=== PATIENT | male | born 1955 | race Caucasian/White ===

== ENCOUNTER 2021-03-28 19:17 | Emergency (ER) | payer MEDICARE, OTHER ==
--- NOTE | 2021-03-28 19:59 | ED ---
General Adult HPI - General Chief complaint: GI Bleed Stated complaint: Spitting up blood Time Seen by Provider: 03/28/21 19:39 Source: patient Mode of arrival: ambulatory Limitations: no limitations - History of Present Illness Initial comments: Dictation was produced using [employer] dictation software. please excuse any grammatical, word or spelling errors. Chief Complaint: 65-year-old male presents to the emergency Department for he matemesis and right-sided flank pain History of Present Illness: 65-year-old male presents emergency department for 1-2 days of hematemesis and right-sided flank pain. Patient has any medical problems. Presenting and medications unreadable bases he is an occasional smoker. States that he has had some episodes of vomiting. He states it is bright red. No black stools. He also complains of some mild right-sided flank pain. He states is not pleuritic. Patient has any shortness of breath. No coughing. No fevers and patient does not have a history of alcoholism. Never been told that he has had esophageal varices. Flank pain is not radiating. The ROS documented in this emergency department record has been reviewed and confirmed by me. Those systems with pertinent positive or negative responses have been documented in the HPI. All other systems are other negative and/or noncontributory. PHYSICAL EXAM: General Impression: Alert and oriented x3, not in acute distress HEENT: Normocephalic atraumatic, extra-ocular movements intact, pupils equal and reactive to light bilaterally, mucous membranes moist. Cardiovascular: Mildly tachycardic Chest: Able to complete full sentences, no retractions, no tachypnea Abdomen: abdomen soft, non-tender, non-distended, no organomegaly Musculoskeletal: Pulses present and equal in all extremities, no peripheral edema Motor: no focal deficits noted Neurological: CN II-XII grossly intact, no focal motor or sensory deficits noted Skin: Intact with no visualized rashes Psych: Normal affect and mood ED course: 65-year-old male presents with chief complaint of hematemesis and right-sided flank pain. Vital signs upon arrival shows heart rate of 115, rest of vital signs within acceptable limits. EKG interpretation: Ventricular rate vital 7, sinus tachycardia,. 194, care is 86, QTC 448. No CA prolongation, no QTC prolongation, no ST or T-wave changes noted. Overall, this EKG is unremarkable Laboratory evaluation obtained. CBC [place]. Coag panel metabolic panel is negative. No markers are normal. Urinalysis shows greater than 182 red blood cells and 80 white blood cells. Acute abdominal series shows no acute processes. CT of the abdomen and pelvis without contrast was obtained for concern of kidney stone and hematuria. There is minimal bladder wall thickening which may be secondary to nonspecific cystitis. No evidence is of renal stone or obstruction. There is concern that patient suffering from urinary tract infection. Is given a dose of ceftriaxone. Patient given a prescription for ciprofloxacin. Patient provided with referral to urology. - Related Data Previous Rx's Medication Instructions Recorded Ciprofloxacin HCl [Cipro] 500 mg PO Q12H 10 Days #20 tab 03/28/21 Allergies Allergy/AdvReac Type Severity Reaction Status Date / Time No Known Allergies Allergy Verified 03/28/21 21:00 Review of Systems ROS Statement: Those systems with pertinent positive or pertinent negative responses have been documented in the HPI. ROS Other: All systems not noted in ROS Statement are negative. Past Medical History Past Medical History: No Reported History History of Any Multi-Drug Resistant Organisms: None Reported Past Surgical History: No Surgical Hx Reported Past Psychological History: No Psychological Hx Reported Smoking Status: Current every day smoker Past Alcohol Use History: None Reported Past Drug Use History: None Reported General Exam Limitations: no limitations Course Vital Signs 03/28/21 03/28/21 03/28/21 19:29 19:36 21:14 Temperature 98.3 F 98.2 F Pulse Rate 115 H 85 Respiratory 16 16 18 Rate Blood Pressure 150/89 163/98 O2 Sat by Pulse 96 96 Oximetry Medical Decision Making - Lab Data Result diagrams: 03/28/21 19:50 03/28/21 19:50 Lab Results 03/28/21 03/28/21 03/28/21 Range/Units 19:48 19:50 19:50 WBC 6.2 (3.8-10.6) k/uL RBC 4.62 (4.30-5.90) m/uL Hgb 14.9 (13.0-17.5) gm/dL Hct 42.0 (39.0-53.0) % MCV 90.8 (80.0-100.0) fL MCH 32.3 (25.0-35.0) pg MCHC 35.6 (31.0-37.0) g/dL RDW 13.1 (11.5-15.5) % Plt Count 262 (150-450) k/uL MPV 7.3 Neutrophils % 76 % Lymphocytes % 13 % Monocytes % 6 % Eosinophils % 3 % Basophils % 1 % Neutrophils # 4.7 (1.3-7.7) k/uL Lymphocytes # 0.8 L (1.0-4.8) k/uL Monocytes # 0.3 (0-1.0) k/uL Eosinophils # 0.2 (0-0.7) k/uL Basophils # 0.0 (0-0.2) k/uL PT (9.0-12.0) sec INR (<1.2) APTT (22.0-30.0) sec Sodium (137-145) mmol/L Potassium (3.5-5.1) mmol/L Chloride (98-107) mmol/L Carbon Dioxide (22-30) mmol/L Anion Gap mmol/L BUN (9-20) mg/dL Creatinine (0.66-1.25) mg/dL Est GFR (CKD-EPI)AfAm (>60 ml/min/1.73 sqM) Est GFR (CKD-EPI)NonAf (>60 ml/min/1.73 sqM) Glucose (74-99) mg/dL Calcium (8.4-10.2) mg/dL Magnesium (1.6-2.3) mg/dL Total Bilirubin (0.2-1.3) mg/dL AST (17-59) U/L ALT (4-49) U/L Alkaline Phosphatase (38-126) U/L Total Protein (6.3-8.2) g/dL Albumin (3.5-5.0) g/dL Urine Color Urine Appearance (Clear) Urine pH (5.0-8.0) Ur Specific [place] (1.001-1.035) Urine Protein (Negative) Urine Glucose (UA) (Negative) Urine Ketones (Negative) Urine Blood (Negative) Urine Nitrite (Negative) Urine Bilirubin (Negative) Urine Urobilinogen (<2.0) mg/dL Ur Leukocyte Esterase (Negative) Urine RBC (0-5) /hpf Urine WBC (0-5) /hpf Ur Squamous Epith Cells (0-4) /hpf Urine Mucus (None) /hpf Blood Type A Negative Blood Type Confirm A Negative Blood Type Recheck No Previous Record Bld Type Recheck Status CABO Indicated Antibody Screen NEGATIVE Spec Expiration Date 03/31/2021 - 234903/28/21 03/28/21 03/28/21 Range/Units 19:50 19:50 20:12 WBC (3.8-10.6) k/uL RBC (4.30-5.90) m/uL Hgb (13.0-17.5) gm/dL Hct (39.0-53.0) % MCV (80.0-100.0) fL MCH (25.0-35.0) pg MCHC (31.0-37.0) g/dL RDW (11.5-15.5) % Plt Count (150-450) k/uL MPV Neutrophils % % Lymphocytes % % Monocytes % % Eosinophils % % Basophils % % Neutrophils # (1.3-7.7) k/uL Lymphocytes # (1.0-4.8) k/uL Monocytes # (0-1.0) k/uL Eosinophils # (0-0.7) k/uL Basophils # (0-0.2) k/uL PT 10.1 (9.0-12.0) sec INR 0.9 (<1.2) APTT 22.6 (22.0-30.0) sec Sodium 133 L (137-145) mmol/L Potassium 4.4 (3.5-5.1) mmol/L Chloride 99 (98-107) mmol/L Carbon Dioxide 26 (22-30) mmol/L Anion Gap 8 mmol/L BUN 16 (9-20) mg/dL Creatinine 0.84 (0.66-1.25) mg/dL Est GFR (CKD-EPI)AfAm >90 (>60 ml/min/1.73 sqM) Est GFR (CKD-EPI)NonAf >90 (>60 ml/min/1.73 sqM) Glucose 106 H (74-99) mg/dL Calcium 8.9 (8.4-10.2) mg/dL Magnesium 2.1 (1.6-2.3) mg/dL Total Bilirubin 0.5 (0.2-1.3) mg/dL AST 23 (17-59) U/L ALT 20 (4-49) U/L Alkaline Phosphatase 93 (38-126) U/L Total Protein 7.0 (6.3-8.2) g/dL Albumin 4.4 (3.5-5.0) g/dL Urine Color Yellow Urine Appearance Cloudy (Clear) Urine pH 6.0 (5.0-8.0) Ur Specific [place] 1.022 (1.001-1.035) Urine Protein 1+ H (Negative) Urine Glucose (UA) Negative (Negative) Urine Ketones Negative (Negative) Urine Blood Large H (Negative) Urine Nitrite Negative (Negative) Urine Bilirubin Negative (Negative) Urine Urobilinogen <2.0 (<2.0) mg/dL Ur Leukocyte Esterase Large H (Negative) Urine RBC >182 H (0-5) /hpf Urine WBC 80 H (0-5) /hpf Ur Squamous Epith Cells 4 (0-4) /hpf Urine Mucus Occasional H (None) /hpf Blood Type Blood Type Confirm Blood Type Recheck Bld Type Recheck Status Antibody Screen Spec Expiration Date Disposition Clinical Impression: Hematuria, Flank pain Disposition: HOME SELF-CARE Condition: Fair Instructions (If sedation given, give patient instructions): Hematuria (ED) Prescriptions: Ciprofloxacin HCl [Cipro] 500 mg PO Q12H 10 Days #20 tab Is patient prescribed a controlled substance at d/c from ED?: No Referrals: Francisco Harper MD [STAFF PHYSICIAN] - 1-2 days
[2021-03-28 20:07] LABS: Basophils % (A) 1 %; Eosinophils # (A) 0.2 k/uL (0-0.7); Eosinophils % (A) 3 %; HGB 14.9 gm/dL (13.0-17.5); Lymphocytes # (A) 0.8 k/uL (1.0-4.8); Lymphocytes % (A) 13 %; MCH 32.3 pg (25.0-35.0); MCHC 35.6 g/dL (31.0-37.0); MCV 90.8 fL (80.0-100.0); Mean Platelet Volume 7.3; Monocytes # (A) 0.3 k/uL (0-1.0); Monocytes % (A) 6 %; Neutrophils # (A) 4.7 k/uL (1.3-7.7); Neutrophils % (A) 76 %; Platelet Count 262 k/uL (150-450); RBC 4.62 m/uL (4.30-5.90); RDW 13.1 % (11.5-15.5); WBC 6.2 k/uL (3.8-10.6)
[2021-03-28 20:15] LABS: ALT 20 U/L (4-49); AST 23 U/L (17-59); African American GFR (CKD) >90 (>60 ml/min/1.73 sqM); Albumin 4.4 g/dL (3.5-5.0); Alkaline Phosphatase 93 U/L (38-126); Anion Gap 8 mmol/L; Blood Urea Nitrogen 16 mg/dL (9-20); Calcium 8.9 mg/dL (8.4-10.2); Carbon Dioxide 26 mmol/L (22-30); Chloride 99 mmol/L (98-107); Glucose 106 mg/dL (74-99); Magnesium 2.1 mg/dL (1.6-2.3); Non-African American GFR(CKD) >90 (>60 ml/min/1.73 sqM); Potassium 4.4 mmol/L (3.5-5.1); Sodium 133 mmol/L (137-145); Total Bilirubin 0.5 mg/dL (0.2-1.3)
[2021-03-28 20:26] LABS: INR 0.9 (<1.2); Partial Thromboplastin Time 22.6 sec (22.0-30.0); Prothrombin Time 10.1 sec (9.0-12.0)
--- NOTE | 2021-03-28 20:32 | XR ---
EXAMINATION TYPE: XR abdomen acute w cxr DATE OF EXAM: 03/28/2021 COMPARISON: NONE HISTORY: Abdominal pain TECHNIQUE: 4 views FINDINGS: There is no heart failure nor confluent pneumonic infiltrate. Costophrenic angles are clear . There are chest leads. Bowel gas pattern is normal. There is no sign of intestinal obstruction or p neumoperitoneum. Fecal pattern is normal. There are no pathologic calcifications over the kidneys. Th ere is some spurring in the lumbar spine. IMPRESSION: No active cardiopulmonary disease. Nonacute abdomen.
[2021-03-28 21:14] VITALS: RESP 18
[2021-03-28 21:26] LABS: Appearance,Urine Cloudy (Clear); Bilirubin,Urine Negative (Negative); Blood,Urine Large (Negative); Color,Urine Yellow; Glucose,Urine (UA) Negative (Negative); Ketones,Urine Negative (Negative); Leukocyte Esterase,Urine Large (Negative); Mucus,Urine Occasional /hpf; Nitrite,Urine Negative (Negative); Protein,Urine 1+ (Negative); RBC,Urine >182 /hpf (0-5); Specific Gravity,Urine 1.022 (1.001-1.035); Squamous Epithelial Cell,Urine 4 /hpf (0-4); Urobilinogen,Urine <2.0 mg/dL (<2.0); WBC,Urine 80 /hpf (0-5)
[2021-03-28] MEDS ORDERED: KETOROLAC 15 MG/ML 1 ML VIAL IVP STA (21:37)
[2021-03-28] MEDS ORDERED: ONDANSETRON 4 MG/2 ML VIAL IVP STA (21:43)
--- NOTE | 2021-03-28 22:43 | CT ---
EXAMINATION TYPE: CT abdomen pelvis wo con DATE OF EXAM: 03/28/2021 COMPARISON: 05/30/2013 HISTORY: Spitting up blood, possiible renal stone. CT DLP: 580.7 mGycm Automated exposure control for dose reduction was used. Images obtained from the diaphragm to the floor the pelvis without contrast. There is some interstitial infiltrates in the right lung base. There is no pleural effusion. Heart si ze is normal. There is no pericardial effusion. Liver spleen stomach pancreas gallbladder appear inta ct. The bile ducts are not dilated. There is no adrenal mass. The kidneys have normal size. There is no hydronephrosis. Ureters are not d ilated. There is no retroperitoneal adenopathy. Abdominal aorta is atheromatous. The bladder distends smoothly. There is some minimal wall thickening of the anterior urinary bladder. There is no inguina l hernia. There is no free fluid in the pelvis. There is no mesenteric edema. There is no ascites or free air. There is no bowel obstruction. Appendi x is medial and appears normal. There are some spondylotic changes in the lumbar spine. There is no c ompression fracture. There is some spinal stenosis at L2-3 due to posterior calcified disc herniation . There is posterior concentric disc herniation at L3-4. There is lateral recess stenosis at L3-4 L4- 5 due to facet arthropathy. The bony pelvis is intact. The hip joints are intact. IMPRESSION: Minimal bladder wall thickening could relate be due to some nonspecific cystitis. Normal appendix. No evidence of renal stone or obstruction.
[2021-03-28] MEDS ORDERED: cefTRIAXone IN SWFI 1,000 MG/10 ML SYRINGE IVP ONE (22:44)
[2021-03-28 23:00] VITALS: BP 164/92; PULSE 86; TEMP 98.4
== END 2021-03-28 23:00 | disposition home or self-care (01) ==
LOC: EC 19:17
DX: R10.9 Unspecified abdominal pain (principal); R31.9 Hematuria, unspecified; F17.200 Nicotine dependence, unspecified, uncomplicated
CPT/HCPCS: 36415; 93005; 86900; 86901; 80053; 83735; 85025; 85610; 85730; 86850; 81001; 87086; 74022; 74176; 96374; 96375 ×2; 99284; J2405; J0696; J1885

== ENCOUNTER 2021-03-30 16:28 | Observation (INO) | payer MEDICARE, OTHER ==
[2021-03-30] MEDS ORDERED: SODIUM CHLORIDE 0.9% 1,000 ML IV STA (17:15)
[2021-03-30] MEDS ORDERED: MORPHINE SULFATE 4 MG/ML SYRINGE IVP STA (17:16)
[2021-03-30 17:41] LABS: Basophils % (A) 1 %; Eosinophils # (A) 0.2 k/uL (0-0.7); Eosinophils % (A) 4 %; HCT 42.4 % (39.0-53.0); HGB 14.7 gm/dL (13.0-17.5); Lymphocytes # (A) 0.8 k/uL (1.0-4.8); Lymphocytes % (A) 17 %; MCH 32.4 pg (25.0-35.0); MCHC 34.7 g/dL (31.0-37.0); MCV 93.3 fL (80.0-100.0); Mean Platelet Volume 6.8; Monocytes # (A) 0.3 k/uL (0-1.0); Monocytes % (A) 7 %; Neutrophils # (A) 3.3 k/uL (1.3-7.7); Neutrophils % (A) 70 %; Platelet Count 235 k/uL (150-450); RBC 4.55 m/uL (4.30-5.90); WBC 4.8 k/uL (3.8-10.6)
[2021-03-30 17:54] LABS: ALT 20 U/L (4-49); AST 23 U/L (17-59); African American GFR (CKD) >90 (>60 ml/min/1.73 sqM); Albumin 4.3 g/dL (3.5-5.0); Alkaline Phosphatase 85 U/L (38-126); Amylase 77 U/L (30-110); Anion Gap 7 mmol/L; Blood Urea Nitrogen 12 mg/dL (9-20); Calcium 8.7 mg/dL (8.4-10.2); Carbon Dioxide 28 mmol/L (22-30); Chloride 100 mmol/L (98-107); Glucose 106 mg/dL (74-99); Lipase 144 U/L (23-300); Non-African American GFR(CKD) >90 (>60 ml/min/1.73 sqM); Potassium 4.5 mmol/L (3.5-5.1); Sodium 135 mmol/L (137-145); Total Bilirubin 0.4 mg/dL (0.2-1.3); Total Protein 6.9 g/dL (6.3-8.2)
--- NOTE | 2021-03-30 18:06 | XR ---
EXAMINATION TYPE: XR KUB DATE OF EXAM: 03/30/2021 COMPARISON: NONE HISTORY: Flank pain TECHNIQUE: 2 views FINDINGS: Bowel gas pattern is normal. There is no sign of intestinal obstruction or pneumoperitoneum . There is retained fecal material in the right colon. There is no evidence of a mass. Lung bases are clear. There are no pathologic calcifications over the kidneys. IMPRESSION: Nonacute abdomen. Probably some constipation with retained fecal material in the right si de.
--- NOTE | 2021-03-30 18:16 | ED ---
Abdominal Pain HPI - General Chief Complaint: Abdominal Pain Stated Complaint: Rt Side Pain Time Seen by Provider: 03/30/21 16:55 Source: patient, RN notes reviewed Mode of arrival: ambulatory Limitations: no limitations - History of Present Illness Initial Comments: Patient is a 65-year-old male that presents to the emergency department complaining of right side pain. He denied any injury or trauma. He was otherwise a well-appearing 65-year-old male in no apparent distress or pain. He notes that the pain was approximately a 9 out of 10 after giving seconds of follow-up. He denied any hematochezia melena hematemesis. He denied any abdominal tenderness or discomfort. He denied any chest pain shortness of breath headache nausea vomiting diarrhea constipation fever fatigue chills. - Related Data Home Medications Medication Instructions Recorded Confirmed No Known Home Medications 03/30/21 03/30/21 Allergies Allergy/AdvReac Type Severity Reaction Status Date / Time aspirin Allergy Abdominal Verified 03/30/21 17:43 Pain Review of Systems ROS Statement: Those systems with pertinent positive or pertinent negative responses have been documented in the HPI. ROS Other: All systems not noted in ROS Statement are negative. Past Medical History Past Medical History: No Reported History History of Any Multi-Drug Resistant Organisms: None Reported Past Surgical History: No Surgical Hx Reported Past Psychological History: No Psychological Hx Reported Smoking Status: Current every day smoker Past Alcohol Use History: None Reported Past Drug Use History: None Reported General Exam Limitations: no limitations General appearance: alert, in no apparent distress Head exam: Present: atraumatic, normocephalic, normal inspection Eye exam: Present: normal appearance, PERRL, EOMI. Absent: scleral icterus, conjunctival injection, periorbital swelling Neck exam: Present: normal inspection Respiratory exam: Present: normal lung sounds bilaterally. Absent: respiratory distress, wheezes, rales, rhonchi, stridor Cardiovascular Exam: Present: regular rate, normal rhythm, normal heart sounds. Absent: systolic murmur, diastolic murmur, rubs, gallop, clicks GI/Abdominal exam: Present: soft, normal bowel sounds. Absent: distended, tenderness, guarding, rebound, rigid Extremities exam: Present: normal inspection, full ROM, normal capillary refill. Absent: tenderness, pedal edema, joint swelling, calf tenderness Neurological exam: Present: alert, oriented X3 Psychiatric exam: Present: normal affect, normal mood Skin exam: Present: warm, dry, intact, normal color. Absent: rash Course Vital Signs 03/30/21 03/30/21 03/30/21 16:48 18:08 18:21 Temperature 98.0 F Pulse Rate 96 40 L 75 Respiratory 20 16 Rate Blood Pressure 165/92 174/94 O2 Sat by Pulse 97 99 Oximetry 03/30/21 19:10 Temperature Pulse Rate 78 Respiratory 40 H Rate Blood Pressure 156/91 O2 Sat by Pulse 100 Oximetry Medical Decision Making - Medical Decision Making 65-year-old male complaining of right flank/abdominal pain times one. Labs, KUB, 1 L normal saline, 4 monos morphine ordered. Labs unremarkable. KUB negative for any acute process. Shows probable constipation with fecal matter retention in the right side. Case discussed with Dr. Bailey, patient will be admitted for observation due to constipation with right side pain and diaphoresis. [facility] the admit for Dr. Britton. - Lab Data Result diagrams: 03/30/21 17:33 03/30/21 17:33 Lab Results 03/30/21 03/30/21 03/30/21 Range/Units 17:33 17:33 18:12 WBC 4.8 (3.8-10.6) k/uL RBC 4.55 (4.30-5.90) m/uL Hgb 14.7 (13.0-17.5) gm/dL Hct 42.4 (39.0-53.0) % MCV 93.3 (80.0-100.0) fL MCH 32.4 (25.0-35.0) pg MCHC 34.7 (31.0-37.0) g/dL RDW 14.0 (11.5-15.5) % Plt Count 235 (150-450) k/uL MPV 6.8 Neutrophils % 70 % Lymphocytes % 17 % Monocytes % 7 % Eosinophils % 4 % Basophils % 1 % Neutrophils # 3.3 (1.3-7.7) k/uL Lymphocytes # 0.8 L (1.0-4.8) k/uL Monocytes # 0.3 (0-1.0) k/uL Eosinophils # 0.2 (0-0.7) k/uL Basophils # 0.0 (0-0.2) k/uL PT (9.0-12.0) sec INR (<1.2) APTT (22.0-30.0) sec Sodium 135 L (137-145) mmol/L Potassium 4.5 (3.5-5.1) mmol/L Chloride 100 (98-107) mmol/L Carbon Dioxide 28 (22-30) mmol/L Anion Gap 7 mmol/L BUN 12 (9-20) mg/dL Creatinine 0.83 (0.66-1.25) mg/dL Est GFR (CKD-EPI)AfAm >90 (>60 ml/min/1.73 sqM) Est GFR (CKD-EPI)NonAf >90 (>60 ml/min/1.73 sqM) Glucose 106 H (74-99) mg/dL Calcium 8.7 (8.4-10.2) mg/dL Total Bilirubin 0.4 (0.2-1.3) mg/dL AST 23 (17-59) U/L ALT 20 (4-49) U/L Alkaline Phosphatase 85 (38-126) U/L Troponin I (0.000-0.034) ng/mL Total Protein 6.9 (6.3-8.2) g/dL Albumin 4.3 (3.5-5.0) g/dL Amylase 77 (30-110) U/L Lipase 144 (23-300) U/L Urine Color Yellow Urine Appearance Clear (Clear) Urine pH 6.5 (5.0-8.0) Ur Specific [place] 1.012 (1.001-1.035) Urine Protein Trace H (Negative) Urine Glucose (UA) Negative (Negative) Urine Ketones Negative (Negative) Urine Blood Moderate H (Negative) Urine Nitrite Negative (Negative) Urine Bilirubin Negative (Negative) Urine Urobilinogen <2.0 (<2.0) mg/dL Ur Leukocyte Esterase Moderate H (Negative) Urine RBC 28 H (0-5) /hpf Urine WBC 67 H (0-5) /hpf Ur Squamous Epith Cells 1 (0-4) /hpf Hyaline Casts 1 (0-2) /lpf Urine Mucus Occasional H (None) /hpf Urine Yeast (Budding) Occasional H (None) /hpf 03/30/21 03/30/21 Range/Units 18:18 18:18 WBC (3.8-10.6) k/uL RBC (4.30-5.90) m/uL Hgb (13.0-17.5) gm/dL Hct (39.0-53.0) % MCV (80.0-100.0) fL MCH (25.0-35.0) pg MCHC (31.0-37.0) g/dL RDW (11.5-15.5) % Plt Count (150-450) k/uL MPV Neutrophils % % Lymphocytes % % Monocytes % % Eosinophils % % Basophils % % Neutrophils # (1.3-7.7) k/uL Lymphocytes # (1.0-4.8) k/uL Monocytes # (0-1.0) k/uL Eosinophils # (0-0.7) k/uL Basophils # (0-0.2) k/uL PT 10.0 (9.0-12.0) sec INR 0.9 (<1.2) APTT 23.4 (22.0-30.0) sec Sodium (137-145) mmol/L Potassium (3.5-5.1) mmol/L Chloride (98-107) mmol/L Carbon Dioxide (22-30) mmol/L Anion Gap mmol/L BUN (9-20) mg/dL Creatinine (0.66-1.25) mg/dL Est GFR (CKD-EPI)AfAm (>60 ml/min/1.73 sqM) Est GFR (CKD-EPI)NonAf (>60 ml/min/1.73 sqM) Glucose (74-99) mg/dL Calcium (8.4-10.2) mg/dL Total Bilirubin (0.2-1.3) mg/dL AST (17-59) U/L ALT (4-49) U/L Alkaline Phosphatase (38-126) U/L Troponin I <0.012 (0.000-0.034) ng/mL Total Protein (6.3-8.2) g/dL Albumin (3.5-5.0) g/dL Amylase (30-110) U/L Lipase (23-300) U/L Urine Color Urine Appearance (Clear) Urine pH (5.0-8.0) Ur Specific [place] (1.001-1.035) Urine Protein (Negative) Urine Glucose (UA) (Negative) Urine Ketones (Negative) Urine Blood (Negative) Urine Nitrite (Negative) Urine Bilirubin (Negative) Urine Urobilinogen (<2.0) mg/dL Ur Leukocyte Esterase (Negative) Urine RBC (0-5) /hpf Urine WBC (0-5) /hpf Ur Squamous Epith Cells (0-4) /hpf Hyaline Casts (0-2) /lpf Urine Mucus (None) /hpf Urine Yeast (Budding) (None) /hpf - EKG Data -: EKG Interpreted by Me EKG Comments: Ventricular rate 78 bpm, UT interval 214 ms, QRS duration 92 ms, QTC 449 ms, PRT axes 53/-22/26. Sinus rhythm with first-degree AV block with premature atrial complex and a pattern of bigeminy. Possible left atrial enlargement, borderline ECG. - Radiology Data Radiology results: report reviewed, image reviewed KUB: Nonacute abdomen. Probably some constipation with retained fecal material the right side. Disposition Clinical Impression: Abdominal pain, Constipation Disposition: ADMITTED IP TO THIS [facility] Condition: Stable Is patient prescribed a controlled substance at d/c from ED?: No Referrals: None,Stated [Primary Care Provider] - 1-2 days Time of Disposition: 19:21
[2021-03-30 18:19] LABS: Appearance,Urine Clear (Clear); Bilirubin,Urine Negative (Negative); Blood,Urine Moderate (Negative); Budding Yeast,Urine Occasional /hpf; Color,Urine Yellow; Glucose,Urine (UA) Negative (Negative); Hyaline Casts,Urine 1 /lpf (0-2); Ketones,Urine Negative (Negative); Leukocyte Esterase,Urine Moderate (Negative); Mucus,Urine Occasional /hpf; Nitrite,Urine Negative (Negative); PH, Urine 6.5 (5.0-8.0); Protein,Urine Trace (Negative); RBC,Urine 28 /hpf (0-5); Specific Gravity,Urine 1.012 (1.001-1.035); Squamous Epithelial Cell,Urine 1 /hpf (0-4); Urobilinogen,Urine <2.0 mg/dL (<2.0); WBC,Urine 67 /hpf (0-5)
[2021-03-30 18:57] LABS: INR 0.9 (<1.2); Partial Thromboplastin Time 23.4 sec (22.0-30.0)
[2021-03-30] MEDS: SODIUM CHLORIDE 0.9% 1,000 ML IV SCH (19:00)
[2021-03-30] MEDS ORDERED: polyethylene glycoL 3350 17 GM POWD.PACK PO STA (19:10)
[2021-03-30] MEDS ORDERED: NALOXONE 0.4 MG/ML 1 ML VIAL IV PRN (19:21)
[2021-03-31] MEDS ORDERED: ONDANSETRON 4 MG/2 ML VIAL IVP PRN (00:34)
[2021-03-31] MEDS: MORPHINE SULFATE 4 MG/ML SYRINGE IVP PRN ×2 (01:30→22:56)
[2021-03-31] MEDS: SODIUM CHLORIDE 0.9% 1,000 ML IV SCH ×3 (04:14→23:00)
[2021-04-01] MEDS: SODIUM CHLORIDE 0.9% 1,000 ML IV SCH (03:05)
[2021-04-01] MEDS ORDERED: FUROSEMIDE 40 MG TAB PO STA (07:54)
[2021-04-01] MEDS ORDERED: amLODIPine 5 MG TAB PO SCH (09:00)
[2021-04-01] MEDS ORDERED: KETOROLAC 15 MG/ML 1 ML VIAL IVP PRN (10:03)
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
--- NOTE | 2021-04-01 11:24 | P.DS ---
Providers Date of admission: 03/30/21 18:58 Attending physician: Tri Britton Primary care physician: Stated None Hospital Course: 65-year-old male came in with complaints of crampy pain in the right flank area radiating anteriorly towards the right side towards the groin. Patient had history of kidney stones in the past. Patient had previous CT which showed cystitis and patient urine is abnormal. Patient doesn't have any fever chills patient denied any nausea vomiting. Patient still has pain. When patient came in patient pain was 9/10 presently improved denied any hematochezia blood in the stools or dark stools. KUB x-ray that was done in ER showed constipation did not show any kidney stones. Urine did show RBC and WBC although not very high. Patient denied any suprapubic pain denied any dysuria or urinary urgency. Did say that patient passed some stones while urinating about couple months ago 04/01/2021 Patient's abdominal pain completely resolved after bowel movement patient abdominal pain appears to be secondary to constipation. Doesn't appear to have urinary tract infection will not require any antibiotics patient will be discharged today with as needed MiraLAX. Patient appears to be hypotensive as well and patient will be started on losartan for that. Patient will follow-up with the primary care physician as an outpatient. PHYSICAL EXAMINATION: GENERAL: The patient is alert and oriented x3, not in any acute distress. Well developed, well nourished. HEENT: Pupils are round and equally reacting to light. EOMI. No scleral icterus. No conjunctival pallor. Normocephalic, atraumatic. No pharyngeal erythema. No thyromegaly. CARDIOVASCULAR: S1 and S2 present. No murmurs, rubs, or gallops. PULMONARY: Chest is clear to auscultation, no wheezing or crackles. ABDOMEN: Soft, there is tenderness in the right lateral aspect below the rib cage area, nondistended, normoactive bowel sounds. No palpable organomegaly. MUSCULOSKELETAL: No joint swelling or deformity. EXTREMITIES: No cyanosis, clubbing, or pedal edema. NEUROLOGICAL: Gross neurological examination did not reveal any focal deficits. SKIN: No rashes. Assessment and plan -Abdominal pain secondary to constipation abdominal pain resolved -Nicotine abuse: Counseling was provided -Hypertension started on losartan Patient Condition at Discharge: Stable Plan - Discharge Summary Discharge Rx Participant: Yes New Discharge Prescriptions: New polyethylene glycoL 3350 [Miralax] 17 gm PO DAILY PRN #15 packet PRN Reason: Constipation Losartan [Cozaar] 50 mg PO DAILY #30 tab Discharge Medication List Losartan [Cozaar] 50 mg PO DAILY #30 tab 04/01/21 [Rx] polyethylene glycoL 3350 [Miralax] 17 gm PO DAILY PRN #15 packet 04/01/21 [Rx] Follow up Appointment(s)/Referral(s): Mann Meyer MD [REFERRING] - 1 Week Discharge Disposition: HOME SELF-CARE
[2021-04-01 14:13] VITALS: BP 184/116; PULSE 120; RESP 18; TEMP 98.4
== END 2021-04-01 15:37 | disposition home or self-care (01) ==
LOC: EC 16:28 → 1SOBS 18:58 → 6NMEDSUR 20:50
PROVIDERS: ADMIT Hospitalist; ATTEND Hospitalist
DX: K59.00 Constipation, unspecified (principal); I10 Essential (primary) hypertension; I44.0 Atrioventricular block, first degree; I49.1 Atrial premature depolarization; E66.9 Obesity, unspecified; Z68.27 Body mass index [BMI] 27.0-27.9, adult; F17.200 Nicotine dependence, unspecified, uncomplicated; Z87.442 Personal history of urinary calculi; Z88.6 Allergy status to analgesic agent; Z98.890 Other specified postprocedural states; Z87.440 Personal history of urinary (tract) infections
CPT/HCPCS: 96376; 96361 ×2; 96365; 96366; 96375 ×2; 99285; 36415; 93005; 80053; 82150; 83690; 84484; 85025; 85610; 85730; 81001; 87086; 74018; G0378 ×4; J2270 ×2; J2405; J0696 ×2